=== PATIENT | female | born 1995 | race Caucasian/White ===

== ENCOUNTER 2021-10-08 14:29 | Emergency (ER) | payer MEDICAID ==
[~2021-10-08] VITALS: Ht 165.1 cm; Wt 64.0 kg
[2021-10-08] MEDS ORDERED: CEPHALEXIN500 M1 PO (18:23)
[2021-10-09] MEDS ORDERED: DOXYCYCLINE MO100 MG PO (14:40)
[2021-10-09] MEDS ORDERED: AMPHETAMINE SAL20 MG PO (14:41)
[2021-10-09] MEDS ORDERED: FLUOXETINE HCL60 MG PO (14:41)
== END 2021-10-08 19:00 | disposition home or self-care (01) ==
LOC: ED 14:29
DX: L03.116 Cellulitis of left lower limb (principal); J39.2 Other diseases of pharynx
CPT/HCPCS: 36415; 80053; 83605; 85025; A9270; J0690; J1200; J1885; J3370; J7030

== ENCOUNTER 2021-10-09 13:22 | Emergency (ER) | payer MEDICAID ==
[~2021-10-09] VITALS: Ht 165.1 cm; Wt 64.0 kg
[~2021-10-09 13:22] MED LIST: CEPHALEXIN500 M1 PO
--- OUTSIDE RECORDS SUMMARY | 2021-10-09 13:30 | XMS ---
PreManage Notification: DARCY PUTNAM Security [employer] Events No recent Security Events currently on file CRITERIA MET - [facility] - 2 Visits in 30 Days CARE PROVIDERS There are no care providers on record at this time. Laurita has no Care Guidelines for this patient. J [facility]12 MO.) [facility] NOTE: Visits indicate total known visits. ED/C VISIT TRACKING (12 MO.) [facility] COMPLAINT: - FOLLOW UP PER 10/08/2021 14:30 [facility] OR TYPE: Emergency COMPLAINT: - L LEG SWELLING/PAIN, HEADACHE, FEVER, NAUSEA INPATIENT VISIT TRACKING (12 MO.) No inpatient visits to display in this time frame [email or web address]
[2021-10-09] MEDS ORDERED: DOXYCYCLINE MO100 MG PO (14:40)
[2021-10-09] MEDS ORDERED: AMPHETAMINE SAL20 MG PO (14:41)
[2021-10-09] MEDS ORDERED: FLUOXETINE HCL60 MG PO (14:41)
== END 2021-10-09 16:52 | disposition home or self-care (01) ==
LOC: ED 13:22
DX: L03.116 Cellulitis of left lower limb (principal); Z79.899 Other long term (current) drug therapy
CPT/HCPCS: 96365; 96375; 99283-25; J0690; J1200; J3370